=== PATIENT | male | born 1955 | race Caucasian/White ===

== ENCOUNTER 2016-10-26 08:45 | Outpatient (CLI) | payer MEDICAID ==
[~2016-10-26] VITALS: Ht 193 cm; Wt 136.1 kg
[2016-10-26] MEDS ORDERED: DEXAMETHASONE PF 10 MG/ML (DECADRON) VIAL ONE (09:01)
[2016-10-26 09:14] VITALS: BP 147/99
[2016-10-26 10:01] VITALS: BP 152/81
--- NOTE | 2016-10-26 12:26 | Pain Medicine-Procedure ---
Procedure Pre-Op/Post-Op Diagnosis Diagnosis: disc disorder with radiculopathy, cervical Indications for Operation Neck pain Attending Surgeon Patricia Procedure Date of Service: Oct 26, 2016 Procedure: Cervical Epidural Steroid Injection at the C7-T1 Level under Fluoroscopic Guidance Procedure: Pt was identified in the holding area. After risks, benefits, and alternatives were discussed with the patient, informed consent was obtained. An IV was placed by nursing staff prior to procedure. Patient was brought to the fluoroscopy suite and placed prone on the operating table. A time out was performed. Vital signs were monitored throughout the procedure. The patients neck was prepped and draped in the usual sterile fashion. The patients skin was anesthetized using 1% Lidocaine. A 18 gauge tuohy needle was inserted and advanced to the C7-T1 epidural space under fluoroscopic guidance using the loss of resistance technique. The needle position was confirmed in the AP and lateral view. After negative aspiration 2 ml of non-ionic contrast was injected under live fluoroscopy which showed good spread of the contrast in the epidural space at the appropriate level, there was no intravascular or subarachnoid spread. Again, after negative aspiration, 3 ml of preservative free normal saline and 10 mg of dexamethasone was injected. The needle was removed and the patient was transferred to the recovery area in stable condition. And after a brief period of observation was discharged to home in stable condition with no new neurologic deficits. Complications None SONAL ADAN MD Oct 26, 2016 12:26 pm
== END 2016-10-26 10:03 ==
LOC: CARD 08:45
PROVIDERS: ATTEND Pain Medicine Pain Medicine
DX: M50.13 Cervical disc disorder with radiculopathy, cervicothoracic region (principal); Z79.899 Other long term (current) drug therapy
CPT/HCPCS: 62321

== ENCOUNTER 2016-11-30 08:00 | Outpatient (CLI) | payer MEDICAID ==
[~2016-11-30] VITALS: Ht 193 cm; Wt 136.1 kg
[2016-11-30] MEDS ORDERED: BUPIVACAINE 0.25% 30 ML (SENSORCAINE) VIAL ONE (08:14)
[2016-11-30] MEDS ORDERED: TRIAMCINOLONE ACET (KENALOG-40) 40 MG/ML 1 ML VIAL ONE (08:14)
[2016-11-30 08:44] VITALS: BP 153/102
[2016-11-30 09:07] VITALS: BP 125/101
--- NOTE | 2016-11-30 13:19 | Pain Medicine-Procedure ---
Procedure Pre-Op/Post-Op Diagnosis Diagnosis: disc disorder with radiculopathy, lumbar Indications for Operation Low back pain Attending Surgeon Patricia Procedure Date of Service: November 30, 2016 Procedure: Lumbar Epidural Steroid Injection at the L3-L4 level under Fluoroscopic Guidance Procedure: Patient was identified in the holding area. After risks, benefits, and alternatives were discussed with the patient, informed consent was obtained. Patient was brought to the fluoroscopy suite and placed prone on the procedure room table. A time out was performed. Vital signs were monitored throughout the procedure. The patients low back was prepped and draped in the usual sterile fashion. The patients skin was anesthetized using 2% Lidocaine. A Tuohy needle was inserted and advanced to the L3-L4 epidural space under fluoroscopic guidance using the loss of resistance technique and intermittent projection of fluoroscopy. There was no paresthesia with needle placement. The needle position was confirmed in both the AP and lateral view. After negative aspiration 2ml of contrast was injected under live fluoroscopy which showed good spread of the contrast in the epidural space at the appropriate level, there was no intravascular or subarachnoid spread. Again, after negative aspiration for heme or CSF, 2 ml of 0.25% Bupivicaine, 2ml of preservative free normal saline, and 80mg of Kenalog was injected. The needle was removed and a sterile bandage was placed and the patient was transferred to the recovery area in stable condition. After a brief period of observation, patient was discharged to home with no new neurological deficits and no apparent complications. Complications None SONAL ADAN MD November 30, 2016 1:19 pm
== END 2016-11-30 09:09 | disposition home or self-care (01) ==
LOC: CARD 08:00
PROVIDERS: ATTEND Pain Medicine Pain Medicine
DX: M51.16 Intervertebral disc disorders with radiculopathy, lumbar region (principal); M50.13 Cervical disc disorder with radiculopathy, cervicothoracic region
CPT/HCPCS: 62323

== ENCOUNTER 2017-10-18 05:51 | Outpatient (CLI) | payer MEDICAID ==
[~2017-10-18] VITALS: Ht 193 cm; Wt 133.8 kg
[2017-10-18] MEDS ORDERED: LOVA20TA2 PO (13:38)
[2017-10-18] MEDS ORDERED: PANT40TA3 PO (13:38)
[2017-10-18] MEDS ORDERED: DICL75TA2 PO (13:38)
[2017-10-18] MEDS ORDERED: BACL10TA PO (13:38)
[2017-10-18] MEDS ORDERED: HYDR-3812 PO (13:38)
== END 2017-10-18 13:39 ==
LOC: PREOP 05:51
PROVIDERS: ATTEND Surgery
DX: Z01.818 Encounter for other preprocedural examination (principal); Z12.11 Encounter for screening for malignant neoplasm of colon; Z80.0 Family history of malignant neoplasm of digestive organs; K21.9 Gastro-esophageal reflux disease without esophagitis

== ENCOUNTER 2017-10-23 09:55 | Day surgery (SDC) | payer MEDICAID ==
[~2017-10-23] VITALS: Ht 193 cm; Wt 133.8 kg
[~2017-10-23 09:55] MED LIST: BACL10TA PO; DICL75TA2 PO; HYDR-3812 PO; LOVA20TA2 PO; PANT40TA3 PO
[2017-10-23 10:10] VITALS: BP 128/96
[2017-10-23] MEDS ORDERED: HURRICAINE EXT TUBE (BENZOCAINE) XX PRN (10:15)
[2017-10-23] MEDS ORDERED: LIDOCAINE JELLY 2% (XYLOCAINE) 5 ML TUBE MM PRN (10:15)
[2017-10-23] MEDS ORDERED: NS IV 500 ML 500 ML ONE ×2 (10:24→12:00)
--- NOTE | 2017-10-23 10:24 | Conscious Sedation/ASA ---
Conscious Sedation Pre-Proced Time Reviewed: 10:00 ASA Class: 2 Airway Mallampati Classification: ([place] appropriate class) I. II. III, IV Lungs Heart ASA score ASA 1: a normal healthy patient ASA 2: a patient with a mild systemic disease (mid diabetes, controlled hypertension, obesity ASA 3: a patient with a severe systemic disease that limits activity (angina , COPD, prior Myocardial infarction) ASA 4: a patient with an incapacitating disease that is a constant threat to life (CHF, renal failure) ASA 5: a moribund patient not expected to survive 24 hrs. (ruptured aneurysm) ASA 6: a declared brain patient whose organs are being harvested. For emergent operations, add the letter E after the classification Grade 2 Sedation Plan: Analgesia, Amnesia, Plan communicated to team members, Discussed options with patient/fam, Discussed risks with patient/fam Note The patient is an appropriate candidate to undergo the planned procedure, sedation, and anesthesia. The patient immediately re-assessed prior to indication. SARAH CEE MD Oct 23, 2017 10:24 am
[2017-10-23] MEDS: NS IV 500 ML 500 ML IV PRN ×2 (10:25→12:15)
--- NOTE | 2017-10-23 10:25 | Progress Note-Pre Operative ---
Pre-Operative Progress Note H&P Reviewed The H&P was reviewed, patient examined and no changes noted. Date Seen by Provider: Oct 23, 2017 Time Seen by Provider: 10:00 Date H&P Reviewed: Oct 23, 2017 Time H&P Reviewed: 10:00 Pre-Operative Diagnosis: GERD, family hx colon ca SARAH CEE MD Oct 23, 2017 10:25 am
[2017-10-23] MEDS ORDERED: ONDANSETRON 4 MG/2 ML (SDV) Z0FRAN IV PRN (10:30)
[2017-10-23] MEDS ORDERED: HYDROcodone/APAP 5 MG/325 MG (LORTAB) TAB PO PRN (10:30)
[2017-10-23] MEDS ORDERED: ACETAMINOPHEN 325 MG TABLET/CAPLET (TYLENOL) PO PRN (10:30)
[2017-10-23] MEDS ORDERED: morphine INJ 10 MG/ML 1ML (SYR OR VIAL) IV PRN (10:30)
[2017-10-23] MEDS ORDERED: ASPI-586 PO (10:41)
[2017-10-23] MEDS ORDERED: POTA10TA36 PO (10:49)
[2017-10-23] MEDS ORDERED: TERA2CAP4 PO (10:49)
[2017-10-23] MEDS ORDERED: GABA250S2 PO (10:49)
[2017-10-23] MEDS ORDERED: CARV6.252 PO (10:49)
[2017-10-23] MEDS ORDERED: BENZ150C4 PO (10:49)
[2017-10-23] MEDS ORDERED: TAMS0.4C2 PO (10:49)
[2017-10-23] MEDS ORDERED: TRAZ-28 PO (10:49)
[2017-10-23] MEDS ORDERED: LISI-552 PO (10:49)
[2017-10-23] MEDS ORDERED: FURO-124 PO (10:49)
[2017-10-23] MEDS ORDERED: LIDOCAINE JELLY 2% (XYLOCAINE) 5 ML TUBE ONE (11:36)
[2017-10-23] MEDS ORDERED: MIDAZOLAM 2 MG/2 ML (VERSED) VIAL ONE ×4 (11:37)
[2017-10-23] MEDS ORDERED: HURRICAINE EXT TUBE (BENZOCAINE) ONE (11:37)
[2017-10-23] MEDS ORDERED: fentaNYL INJECTION 100 MCG/2 ML AMP ONE ×2 (11:37)
[2017-10-23] MEDS: MIDAZOLAM 2 MG/2 ML (VERSED) VIAL IVP PRN ×4 (11:50→12:21)
[2017-10-23] MEDS: fentaNYL INJECTION 100 MCG/2 ML AMP IVP PRN ×4 (11:51→12:38)
[2017-10-23 12:50] VITALS: BP 154/92
--- NOTE | 2017-10-23 12:55 | Progress Note-Post Operative ---
Post-Operative Progess Note Surgeon (s)/Sinter Machine Operator (s) Surgeon SARAH CEE MD Sinter Machine Operator: none Pre-Operative Diagnosis GERD, family hx colon ca Post-Operative Diagnosis reflux esophagitis(class B), small HH(1.5), mild gastritis and duodenitis. chronic stage 2 ext and int hemorrhoids, HP polyp rectum(1-2mm). Procedure & Operative Findings Date of Procedure 10/23/17 Procedure Performed/Findings EGD with bx. Colonoscopy with bx. Anesthesia Type CS Estimated Blood Loss Estimated blood loss (mL): minimal Specimens/Packing Specimens Removed GE jxn, antrum, rectal polyp SARAH CEE MD Oct 23, 2017 12:55 pm
--- NOTE | 2017-10-23 12:57 | Discharge Inst-Surgical ---
D/C Lap Instructions-[facility]LEMAN Follow Up 5 yrs Activity as tolerated High Fiber Diet 25g or more per day Avoid Alcohol, Caffeine, Spicy Protection and Acid foods. Drink 64 fluid oz or more of fluids per day. Symptoms to Report: Fever over 101 degree F, Nausea/Vomiting If any problems/questions: Contact your physician or go to Emergency Room SARAH CEE MD Oct 23, 2017 12:57 pm
[2017-10-23 12:58] VITALS: BP 154/92
[2017-10-23 13:20] VITALS: BP 167/84
[2017-10-23 13:38] VITALS: BP 167/84
--- NOTE | 2017-10-23 16:03 | OPERATIVE REPORT ---
DATE OF SERVICE: 10/23/2017 ATTENDING PRIMARY: . PREOPERATIVE DIAGNOSES: Gastroesophageal reflux disease, family history of colon cancer. POSTOPERATIVE DIAGNOSES: Reflux esophagitis class B, small hiatal hernia approximately 1.5 cm in size, mild gastritis, mild duodenitis, chronic stage II external and internal hemorrhoids, small hyperplastic polyp of the rectum. PROCEDURE: EGD with biopsy and colonoscopy with biopsy. SURGEON: Sarah Cee MD ANESTHESIA: Conscious sedation. ESTIMATED BLOOD LOSS: Minimal. FINDINGS: EGD; reflux esophagitis class B, small hiatal hernia approximately 1.5 cm in size. Mild gastritis with no ulcers, polyps or any neoplasms. Colonoscopy; chronic stage II external and internal hemorrhoids, small hyperplastic polyp of the rectum, 1 to 2 mm in size. The remainder of the colon was normal. DISPOSITION: The patient tolerated procedure well. INDICATIONS FOR PROCEDURE: The patient is a 61-year-old male referred over to us in need of screening colonoscopy as well as gastroesophageal reflux disease. He reports that he has had issues with reflux and has had an EGD before in the past; however, does not remember the results. He is currently on Protonix. He reports epigastric burning sensation as well as occasional episodes of regurgitation, which has worsened in the past few years. He also has not had a colonoscopy up to this point in his life and he does have a family history of colon cancer with his mother having the disease. He does not report any major issues with diarrhea nor constipation as well as no red blood per rectum nor any dark tarry stools. DESCRIPTION OF PROCEDURE: The patient was brought to the endoscopy suite, laid in the left lateral decubitus position with the head slightly elevated. The mouthpiece was then applied and the endoscope was placed in the mouth, visualizing the pharynx and hypopharyngeal region. Vocal cords, epiglottis and vallecula identified and appeared to be normal. The endoscope was then gently intubated in the esophageal opening and esophagus insufflated. There were no ulcers or strictures identified in this region. A biopsy was taken with forceps with visualization of good hemostasis. The endoscope was then easily advanced in the stomach and endoscope retroflexed, visualizing a small hiatal hernia approximately 1.5 cm in size. There was a mild severity of gastritis, which was diffuse. There were no formal ulcers, polyps or any neoplasms identified. A biopsy was taken of the antrum for H. pylori with forceps with visualization of good hemostasis. The endoscope was then advanced through the pylorus into the first and second portions of the duodenum. There was a mild duodenitis also identified. There were no formal ulcers identified. The endoscope was then slowly withdrawn taking a second look and suctioning of residual air with no additional findings. The patient tolerated this portion of the procedure well. For his reflux esophagitis, small hiatal hernia as well as gastritis and duodenitis, we feel that this is most likely secondary to lifestyle and he needs to proceed with the necessary lifestyle, diet, accommodation including smoking cessation as well as avoidance of alcoholic beverages as well as caffeinated beverages. He also needs to avoid spicy, greasy and acidic foods as well as take in small and more frequent meals and avoidance of eating at night as well as some form of weight loss regimen. Currently, we will have him continue with his Protonix. Under the same conscious sedation anesthesia, we then proceeded with the colonoscopy portion of the procedure. A digital rectal examination was performed, which revealed chronic stage II external and internal hemorrhoids, not actively edematous nor inflamed nor any bleeding. Normal sphincter tone was felt and there were no palpable masses. Prostate gland was palpable and appeared normal. The endoscope was then intubated to the anus and rectum gently insufflated. A small hyperplastic polyp of the rectum identified approximately 1 to 2 mm in size. This was biopsied and destroyed using forceps with visualization of good hemostasis. Endoscope was then advanced through the sigmoid colon where no diverticulosis identified. The endoscope was then advanced to the remainder of the descending, transverse, ascending colon and the cecum. These segments are normal. The endoscope was then slowly withdrawn with taking a second look and suctioning of residual air with no additional findings. The patient tolerated the procedure well. We will have him continue with medical management with a high fiber diet with at least 30 grams of fiber per day as well as at least 64 fluid ounces of water daily to promote soft stools on a daily basis. Due to his family history of colon cancer, we will recommend a followup colonoscopy in 5 years. Job ID: [id number] DocumentID: [id number] Dictated Date: 10/23/2017 12:54:50 [employer] Date: 10/23/2017 15:40:26 Dictated By: SARAH CEE MD
== END 2017-10-23 13:39 | disposition home or self-care (01) ==
LOC: ENDO 09:55
PROVIDERS: ATTEND Surgery
DX: Z12.11 Encounter for screening for malignant neoplasm of colon (principal); K21.0 Gastro-esophageal reflux disease with esophagitis; K44.9 Diaphragmatic hernia without obstruction or gangrene; K29.50 Unspecified chronic gastritis without bleeding; K29.80 Duodenitis without bleeding; K62.1 Rectal polyp; Z80.0 Family history of malignant neoplasm of digestive organs; I25.10 Atherosclerotic heart disease of native coronary artery without angina pectoris; I50.9 Heart failure, unspecified; J44.9 Chronic obstructive pulmonary disease, unspecified; I25.2 Old myocardial infarction; I10 Essential (primary) hypertension; Z95.5 Presence of coronary angioplasty implant and graft; Z79.899 Other long term (current) drug therapy; F17.210 Nicotine dependence, cigarettes, uncomplicated